=== PATIENT | male | born 1935 | race Caucasian/White ===

== ENCOUNTER → 2022-04-10 | Emergency (ER) | payer OTHER ==
[~2022-04-10] VITALS: Ht 172.7 cm; Wt 74.8 kg
[~2022-04-10] MED LIST: BACITRACIN 1 GM OINT TP ONE; DIPH-TET-PERTUS Vaccine 0.5 ML VIAL (ADACEL) I.M. ONE; LIDOCAINE 1% 10 MG/ML, 20 ML MDV INJ ONE
[2022-04-10 21:19] VITALS: BP_SYST 151
--- NOTE | 2022-04-10 21:20 | NUR ---
Patient to ER bed 7 to gown for evaluation. Side rails up.
--- NOTE | 2022-04-10 21:25 | NUR ---
ER at bedside examining patient.
--- NOTE | 2022-04-10 22:24 | NUR ---
Patient given written and verbal discharge instructions and verbalizes understanding. ER MD discussed with patient the results and treatment provided. Patient in stable condition. ID arm band removed. no Rx of given. Patient educated on pain management and to follow up with PMD. Pain Scale 0/10. Opportunity for questions provided and answered. Medication side effect fact sheet provided.
[2022-04-10 22:27] VITALS: BP_SYST 137
== END | disposition home or self-care (01) ==
LOC: SED 21:07
DX: S91.209A Unspecified open wound of unspecified toe(s) with damage to nail, initial encounter (principal); W23.1XXA Caught, crushed, jammed, or pinched between stationary objects, initial encounter; Y93.89 Activity, other specified; Y92.89 Other specified places as the place of occurrence of the external cause; Y99.8 Other external cause status
CPT/HCPCS: 99284; 90715; 90471; 11730; J2001; 99283

== ENCOUNTER 2022-04-13 10:08 | Emergency (ER) | payer OTHER ==
[~2022-04-13] VITALS: Ht 172.7 cm; Wt 70.3 kg
--- NOTE | 2022-04-13 10:16 | NUR ---
Patient to ER bed 07 to gown for evaluation. Side rails up.
[2022-04-13 10:24] VITALS: BP_SYST 137
--- NOTE | 2022-04-13 12:02 | NUR ---
NON ADHERENT DRESSING WITH WRAP ADMINISTERED TO RIGHT GREAT TOE. PT TOLERATED WELL. AWAITING MD WOODALL TO PRINT AVS. PT VSS. NAD NOTED. WILL CONT TO MONITOR PT.
[2022-04-13 12:30] VITALS: BP_SYST 135
--- NOTE | 2022-04-13 12:30 | NUR ---
PT DISCHARGED GIVEN AVS. ALL QUESTIONS ANSWERED. VSS. NAD NOTED. PT AMBULATED TO EXIT WITH STABLE GAIT. AAOX4. END OF CARE.
== END 2022-04-13 12:30 | disposition home or self-care (01) ==
LOC: SED 10:08
DX: M79.674 Pain in right toe(s) (principal); Z79.899 Other long term (current) drug therapy
CPT/HCPCS: 99281